=== PATIENT | male | born 1995 | race Caucasian/White ===

== ENCOUNTER → 2017-01-11 10:25 | Outpatient (CLI) | payer MEDICAID ==
[2017-01-11 11:01] LABS: BASOPHILS 0.8 % (0-2); EOSINOPHILS 1.7 % (0-7); HEMATOCRIT 41.6 % (42.0-54.0); HEMOGLOBIN 14.2 g/dL (13.5-17.5); IMMATURE GRANULOCYTES 0.3 % (0-5); LYMPHOCYTES 31.2 % (15-50); MCH 30.9 pg (26.0-34.0); MCHC 34.1 g/dL (31.0-37.0); MCV 90.4 fL (80.0-100.0); MONOCYTES 12.3 % (2-11); NEUTROPHILS 53.7 % (40-80); PLATELET COUNT 235 10x3/uL (130-400); WBC 6.4 10x3/uL (4.8-10.8)
[2017-01-11 11:20] LABS: ALKALINE PHOSPHATASE 112 U/L (46-116); ALT (SGPT) 25 U/L (10-68); BILIRUBIN - TOTAL 0.65 mg/dL (0.2-1.3); CALC OSMOLALITY 280 mosm/kg (275-300); CALCIUM 8.9 mg/dL (8.5-10.1); CARBON DIOXIDE 32.2 mmol/L (21.0-32.0); CHLORIDE - SERUM 104 mmol/L (98-107); GLUCOSE 89 mg/dL (74-106); POTASSIUM - SERUM 4.1 mmol/L (3.5-5.1); PROTEIN - SERUM 7.4 g/dL (6.4-8.2); SODIUM 141 mmol/L (136-145); UREA NITROGEN 14 mg/dL (7-18); eGFR NON AFRICAN AMERICAN > 90 mL/min (90-120)
== END | disposition home or self-care (01) ==
LOC: D.LAB 10:25
PROVIDERS: Chiropractor
DX: N05.9 Unspecified nephritic syndrome with unspecified morphologic changes (principal)